=== PATIENT | male | born 1960 | race Caucasian/White ===

== ENCOUNTER 2021-02-16 16:29 | Emergency (ER) | payer OTHER ==
[2021-02-16] MEDS ORDERED: ALPRAZolam 0.25 MG Tab PO ONE (17:34)
--- NOTE | 2021-02-16 17:37 | EDM.PDOC ---
ED HPI GENERAL MEDICAL PROBLEM - General Chief Complaint: Neck Problem Stated Complaint: PAIN IN NECK AND HEAD Time Seen by Provider: 02/16/21 17:30 Source of Information: Reports: Patient, Family, RN Notes Reviewed History Limitations: Reports: No Limitations - History of Present Illness INITIAL COMMENTS - FREE TEXT/NARRATIVE: 60-year-old gentleman presents emergency department day following hyperflexion of the neck, he injured himself about 2 hours prior he was walking down the steps ended up hitting a beam across his his forehead and bending his neck backwards he now has got significant pain in the center of his neck no numbness and tingling in the fingers but he does feel flushed and warm, no loss of consciousness. - Related Data Allergies Allergy/AdvReac Type Severity Reaction Status Date / Time No Known Allergies Allergy Verified 02/16/21 16:57 Home Meds: Home Meds ALPRAZolam [Xanax] 1 tab PO DAILY PRN 02/16/21 [History] metFORMIN [Glucophage] 4 tab PO DAILY 02/16/21 [History] Past Medical History Musculoskeletal History: Reports: Neck Pain, Chronic Psychiatric History: Reports: Anxiety Endocrine/Metabolic History: Reports: Diabetes Mellitus, Type 3c - Past Surgical History GI Surgical History: Reports: Cholecystectomy Social & Family History - Tobacco Use Tobacco Use Status *Q: Never Tobacco User ED ROS GENERAL - Review of Systems Review Of Systems: See Below Constitutional: Reports: No Symptoms Respiratory: Reports: No Symptoms Cardiovascular: Reports: No Symptoms GI/Abdominal: Reports: No Symptoms Musculoskeletal: Reports: Back Pain Neurological: Reports: No Symptoms ED EXAM, UPPER BACK/NECK PAIN - Physical Exam Exam: See Below Text/Narrative:: Positive posterior midline C-spine tenderness NO evidence of intoxication GCS > 14 No focal neurological deficit NO distracting injury Exam Limited By: No Limitations General Appearance: Alert, Mild Distress Nexus Criteria: Posterior, Midline Cervical Tenderness Cardiovascular/Respiratory: No Respiratory Distress Course - Vital Signs Last Recorded V/S: Last Vital Signs Temp 97.3 F 02/16/21 17:10 Pulse 88 02/16/21 17:10 Resp 16 02/16/21 17:10 BP 112/63 02/16/21 17:10 Pulse Ox 94 L 02/16/21 17:10 - Orders/Labs/Meds Meds: Medications Discontinued Medications Generic Name Dose Route Start Last Admin Trade Name Freq PRN Reason Stop Dose Admin Alprazolam 1 mg 02/16/21 17:34 02/16/21 17:43 Alprazolam 0.25 Mg Tab PO 02/16/21 17:35 1 mg ONETIME ONE Administration Fentanyl 50 mcg 02/16/21 18:52 Fentanyl 100 Mcg/2 Ml Sdv IM 02/16/21 18:53 ONETIME ONE Departure - Departure Time of Disposition: 18:58 Disposition: Home, Self-Care 01 Condition: Fair Clinical Impression: Contusion of neck Qualifiers: Encounter type: initial encounter Qualified Code(s): S10.93XA - Contusion of unspecified part of neck, initial encounter - Discharge Information Instructions: Contusion, [id number] Referrals: PCP,None [Primary Care Provider] - Forms: ED Department Discharge Additional Instructions: Use ibuprofen as needed for pain control use the Percocet for breakthrough pain, please followup with your primary care provider in 3-5 days if not better, please call return to the emergency department with worsening of symptoms. Sepsis Event Note (ED) - Evaluation Sepsis Screening Result: No Definite Risk - Focused Exam Vital Signs: Vital Signs Temp Pulse Resp BP Pulse Ox 02/16/21 17:10 97.3 F 88 16 112/63 94 L 02/16/21 16:54 97.3 F 88 16 112/63 94 L - Assessment/Plan Plan: Assessment Acuity = acute Site and laterality = neck contusion Etiology = trauma Manifestations = none Location of injury = Home Lab values = CT scan of the neck shows no acute process Plan Given fentanyl in the emergency department prescription written for Percocet 5/325 1 tab p.o. 3 times daily. Total #10 follow-up with his primary care next 3 to 5 days if not better This note was dictated using [employer] recognition software please call with any questions on syntax or grammar.
--- NOTE | 2021-02-16 18:36 | CRLCT ---
For Patients: As a result of the Cures Act, medical imaging exams and procedure reports are released immediately into your electronic medical record. You may view this report before your referring provider. If you have questions, please contact your health care provider. Indication: Trauma, hyperflexion. Technique: CT of the cervical spine without IV contrast. Coronal and sagittal reconstructions. Comparison: None. Findings: No acute fracture or traumatic malalignment of the cervical spine. Vertebral body heights are well maintained. Normal vertebral body alignment. Straightening of the normal cervical lordosis. Mild neural foraminal narrowing on the right at C4-C5. No significant disc space narrowing. No prevertebral soft tissue swelling. Visualized intracranial contents are unremarkable. The mastoid air cells are clear. The thyroid gland is normal in appearance. The visualized lung apices are clear. Impression: No acute fracture or traumatic malalignment of the cervical spine. Please note that all CT scans at this facility use dose modulation, iterative reconstruction, and/or weight-based dosing when appropriate to reduce radiation dose to as low as reasonably achievable. Dictated by Kailey Alarcon MD @ 02/16/2021 6:34:[address] Kailey Alarcon @ Feb 16 2021 6:34PM
[2021-02-16] MEDS ORDERED: fentaNYL 100 MCG/2 ML SDV IM ONE (18:52)
== END 2021-02-16 19:11 | disposition home or self-care (01) ==
LOC: JP.ED 16:29
DX: S10.93XA Contusion of unspecified part of neck, initial encounter (principal); E11.9 Type 2 diabetes mellitus without complications; Z79.84 Long term (current) use of oral hypoglycemic drugs; W22.8XXA Striking against or struck by other objects, initial encounter; Y93.01 Activity, walking, marching and hiking
CPT/HCPCS: 72125; 96372; 99283; A9270; J3010